=== PATIENT | female | born 1965 | race African-American/Black ===

== ENCOUNTER 2025-07-28 16:16 | Inpatient (IN) | payer OTHER ==
[~2025-07-28] VITALS: Ht 167.6 cm; Wt 54.6 kg
[2025-07-28 16:18] VITALS: O2SAT 98
[2025-07-28 17:59] LABS: BASOPHILS % 0.6 % (0.0-2.0); EOSINOPHILS % 0.5 % (0.0-5.0); HEMATOCRIT. 38.2 % (36.0-48.0); HEMOGLOBIN. 12.7 g/dL (12.0-16.0); LYMPHOCYTES % 13.9 % (20.0-50.0); MEAN PLATELET VOLUME 8.8 fl (7.4-10.4); MONOCYTES % 6.8 % (2.0-8.0); NEUTROPHILS % 78.2 % (40.0-76.0); PLATELET 247 x1000/uL (130-400); RED BLOOD CELL COUNT 4.25 mill/uL (4.2-5.4); RED CELL DISTRIBUTION WIDTH 14.1 % (11.6-14.6)
[2025-07-28 18:10] LABS: CREATININE 0.4 mg/dL (0.6-1.0); UREA NITROGEN BLOOD 6 mg/dL (9-23)
[2025-07-28 18:11] LABS: TROPONIN I HIGH SENSITIVITY < 4 ng/L (3.0-34)
[2025-07-28 18:12] LABS: ASPARTATE AMINOTRANSFERASE 38 IU/L (<34); BILIRUBIN DIRECT < 0.1 mg/dL (<=3.0); BILIRUBIN TOTAL 0.3 mg/dL (0.1-1.0); PROTEIN TOTAL 6.5 g/dL (6.0-8.3)
[2025-07-28 18:44] LABS: INR 1.0
[2025-07-28] MEDS: MORPHINE SULFATE 4 MG/ML INJ (FOR IV/IM USE) IV ONE (18:56)
[2025-07-28] MEDS: ENOXAPARIN 60MG/0.6ML SYR SUBCUT SCH (19:51)
[2025-07-28] MEDS: ASPIRIN 325MG EC TABLET PO SCH (19:51)
[2025-07-28 20:29] LABS: TROPONIN I HIGH SENSITIVITY < 4 ng/L (3.0-34)
[2025-07-28 22:10] VITALS: BP 150/84; PULSE 80; RESP 20; TEMP 36.9; TEMP 36.974; O2SAT 94
[2025-07-28] MEDS: METOPROLOL TARTRATE 50MG TABLET PO SCH (23:43)
[2025-07-29] VITALS: BP 146/91; PULSE 120; RESP 20; TEMP 36.1; O2SAT 100
[2025-07-29] MEDS: HYDROCODONE/ACETAMINOPHEN 5/325MG TABLET PO PRN (02:04)
[2025-07-29 04:00] VITALS: BP 131/74; PULSE 63; RESP 20; TEMP 36.4; O2SAT 98
[2025-07-29] MEDS: GABAPENTIN 300MG CAPSULE PO SCH (06:08)
[2025-07-29 08:00] VITALS: BP 124/88; PULSE 65; RESP 18; TEMP 37.2; O2SAT 100
[2025-07-29] MEDS: ASPIRIN 81MG TABLET PO SCH (08:40)
[2025-07-29] MEDS: ENOXAPARIN 40MG/0.4ML SYR SUBCUT SCH (08:41)
[2025-07-29] MEDS: LOSARTAN 50 MG TABLET PO SCH (08:46)
[2025-07-29 12:14] VITALS: BP 107/79; PULSE 95; RESP 18; TEMP 37.1; O2SAT 97
[2025-07-29 12:32] LABS: BASOPHILS % 0.7 % (0.0-2.0); EOSINOPHILS % 1.0 % (0.0-5.0); HEMATOCRIT. 36.5 % (36.0-48.0); HEMOGLOBIN. 11.9 g/dL (12.0-16.0); LYMPHOCYTES % 19.6 % (20.0-50.0); MEAN PLATELET VOLUME 8.7 fl (7.4-10.4); MONOCYTES % 8.2 % (2.0-8.0); NEUTROPHILS % 70.5 % (40.0-76.0); PLATELET 239 x1000/uL (130-400); RED BLOOD CELL COUNT 3.96 mill/uL (4.2-5.4); RED CELL DISTRIBUTION WIDTH 14.5 % (11.6-14.6)
[2025-07-29 12:56] LABS: CREATININE 0.4 mg/dL (0.6-1.0); TRIGLYCERIDE 105 mg/dL (0-150); UREA NITROGEN BLOOD < 5 mg/dL (9-23)
[2025-07-29 12:57] LABS: LDL CHOLESTEROL 114 mg/dL (5-100)
[2025-07-29 15:59] LABS: TROPONIN I HIGH SENSITIVITY < 4 ng/L (3.0-34)
[2025-07-29 16:00] VITALS: BP 113/58; PULSE 71; RESP 18; TEMP 37.3; O2SAT 100
[2025-07-29] MEDS ORDERED: REGADENOSON 0.4 MG/5 ML IV SCH (16:30)
[2025-07-29 20:00] VITALS: BP 106/55; PULSE 85; RESP 18; TEMP 36.3; O2SAT 100
[2025-07-29] MEDS: ATORVASTATIN CALCIUM 40MG TABLET PO SCH (21:00)
[2025-07-30] VITALS (7 sets, daily range): BP systolic 118–133; BP diastolic 68–86; PULSE 89–119; RESP 18–22; TEMP 36.3–38.3; O2SAT 97–100
[2025-07-30] MEDS ORDERED: REGADENOSON 0.4 MG/5 ML IV ONE (11:30)
[2025-07-31] VITALS (8 sets, daily range): BP systolic 110–129; BP diastolic 59–79; PULSE 62–97; RESP 18–22; TEMP 36.6–37.6; O2SAT 95–98
[2025-07-31] MEDS ORDERED: IBUP-1455 MT (09:58)
[2025-07-31 16:30] LABS: CLARITY URINE CLEAR (CLEAR); COLOR URINE YELLOW (YELLOW); GLUCOSE URINE NEGATIVE (NEGATIVE); KETONES URINE NEGATIVE (NEGATIVE); LEUKOCYTE ESTERASE URINE TRACE (NEGATIVE); NITRITE URINE NEGATIVE (NEGATIVE); OCCULT BLOOD URINE NEGATIVE (NEGATIVE); PH URINE 6.5 (4.5-8.0); PROTEIN URINE NEGATIVE (NEGATIVE); SPECIFIC GRAVITY URINE 1.027 (1.005-1.030); UROBILINOGEN URINE 1.0 E.U./dL (0.2-1.0)
[2025-07-31] MEDS: LIDOCAINE 5% PATCH TOP SCH (18:14)
[2025-07-31 18:28] LABS: BACTERIA URINE 1+
[2025-07-31 18:29] LABS: RBC URINE 0-2 /hpf (0-2); SQUAMOUS EPITHELIAL CELL URINE 1+ /lpf (RARE/1+); WBC URINE 0-2 /hpf (0-2)
== END 2025-07-31 23:07 | disposition home or self-care (01) | DRG 198 ==
LOC: ER 16:16 → EDBD 16:16 → EDBEDREQ 19:27 → EDBEDREQTM 19:27 → ENRESERV 21:24 → 7WST 22:10
PROVIDERS: ADMIT Internal Medicine; ATTEND Internal Medicine
DX: I20.0 Unstable angina (principal); L89.223 Pressure ulcer of left hip, stage 3; L89.303 Pressure ulcer of unspecified buttock, stage 3; E11.42 Type 2 diabetes mellitus with diabetic polyneuropathy; E78.5 Hyperlipidemia, unspecified; M41.9 Scoliosis, unspecified; L89.50 Pressure ulcer of unspecified ankle
CPT/HCPCS: 36415; 71045; 78580; 80048; 80061; 80076; 80320; 81003; 84484; 85025; 85379; 93005; 93306; 93970; 96372; 99285; J1650; J2270; J2785; G0480